=== PATIENT | female | born 1970 | race Caucasian/White ===

== ENCOUNTER 2019-10-10 10:02 | Outpatient (CLI) | payer BC, SELFPAY ==
--- NOTE | ~2019-10-10 | US_ITS ---
EXAMINATION: US pelvic complete w TV EXAM DATE: 10/10/2019 11:12 INDICATION: Heavy menstrual cycle. Evaluate for polyps. TECHNIQUE: Pelvic transabdominal and transvaginal sonogram was performed. There are multiple graysca le and Doppler images available for interpretation. There is no prior study for comparison. FINDINGS: Uterus measures 9.8 x 7.7 x 6.9 cm, with scattered fibroids identified, 2 largest are post erior myometrial at 5 cm and 3 cm. Endometrial stripe measures 8 mm, within normal limits. There is a nabothian cyst. There is no free pelvic fluid. Right adnexa: The ovary measures 1.2 x 1.5 x 2.5 cm and is morphologically normal. Ovarian vascular f low confirmed. Left adnexa: The ovary measures 1.8 x 2.0 x 1.7 cm and is morphologically normal. Ovarian vascular fl ow confirmed. IMPRESSION: 1. Fibroid uterus. Reviewed, dictated and finalized at location A. NISTRATIVE AIDE IMPRESSION: 1. Fibroid uterus.
== END 2019-10-10 10:03 | disposition home or self-care (01) ==
PROVIDERS: PCP Family Medicine; Visit Provider Student in an Organized Health Care Education/Training Program
DX: N84.1 Polyp of cervix uteri (principal); D25.9 Leiomyoma of uterus, unspecified
CPT/HCPCS: 76830; 76856